=== PATIENT | female | born 1955 | race Caucasian/White ===

== ENCOUNTER 2017-01-22 08:44 | Emergency (ER) | payer MEDICAID ==
[~2017-01-22] VITALS: Ht 157.5 cm; Wt 48.0 kg
[~2017-01-22 08:44] MED LIST: CAPE500T15 PO; MORP15TA67 PO; PROC5TAB PO
[2017-01-22] MEDS ORDERED: ONDANSETRON HCL 4MG/2ML VIAL IV STA (09:52)
[2017-01-22] MEDS ORDERED: SODIUM CHLORIDE 0.9% 1,000 ML IV ONE (09:52)
[2017-01-22] MEDS ORDERED: MORPHINE SULFATE 4 MG/ML CPJ (NOT FOR IM USE) IV STA (09:52)
[2017-01-22 10:24] LABS: BASOPHILS % 0.4 % (0.0-2.0); EOSINOPHILS % 0.2 % (0.0-5.0); HEMATOCRIT. 43.6 % (36.0-48.0); HEMOGLOBIN. 15.3 g/dL (12.0-16.0); LYMPHOCYTES % 7.4 % (20.0-50.0); MEAN CORPUSCULAR HEMOGLOBIN 37.7 pg (28.0-32.0); MEAN CORPUSCULAR VOLUME 107.8 fL (81.0-99.0); MEAN PLATELET VOLUME 8.4 fl (7.4-10.4); MONOCYTES % 7.4 % (2.0-8.0); NEUTROPHILS % 84.6 % (40.0-76.0); PLATELET 335 x1000/uL (130-400); RED BLOOD CELL COUNT 4.05 mill/uL (4.2-5.4); RED CELL DISTRIBUTION WIDTH 12.4 % (11.6-14.6)
[2017-01-22 10:25] LABS: CHLORIDE 96 mEq/L (98-107)
[2017-01-22 10:26] LABS: PROTHROMBIN TIME 10.9 sec (9.4-11.6)
[2017-01-22 10:28] LABS: CLARITY URINE CLEAR (CLEAR); COLOR URINE DARK YELLOW (YELLOW); GLUCOSE URINE NEGATIVE (NEGATIVE); KETONES URINE NEGATIVE (NEGATIVE); LEUKOCYTE ESTERASE URINE NEGATIVE (NEGATIVE); NITRITE URINE NEGATIVE (NEGATIVE); OCCULT BLOOD URINE NEGATIVE (NEGATIVE); PROTEIN URINE NEGATIVE (NEGATIVE); SPECIFIC GRAVITY URINE 1.015 (1.005-1.030)
[2017-01-22 10:33] LABS: CARBON DIOXIDE 29 mEq/L (21-32); ETHANOL BLOOD < 10 mg/dL
[2017-01-22 11:08] LABS: *AMPHETAMINES SCREEN URINE NEGATIVE (NEGATIVE); *BARBITURATES SCREEN URINE NEGATIVE (NEGATIVE); *BENZODIAZEPINES SCREEN URINE NEGATIVE (NEGATIVE); *COCAINE SCREEN URINE NEGATIVE (NEGATIVE); CANNABINOID URINE SCREEN NEGATIVE (NEGATIVE); METHADONE URINE SCREEN NEGATIVE (NEGATIVE); OPIATES URINE SCREEN PRESUMTIVE POSITIVE (NEGATIVE); PHENCYCLIDINE URINE SCREEN NEGATIVE (NEGATIVE)
[2017-01-22 14:04] VITALS: BP 134/89
== END 2017-01-22 14:29 | disposition home or self-care (01) ==
LOC: ER 08:59 → CANBEDREQ 20:38
DX: R10.9 Unspecified abdominal pain (principal); R06.02 Shortness of breath; C18.9 Malignant neoplasm of colon, unspecified
CPT/HCPCS: 36415; 71010; 80053; 80305; 81003; 83605; 85025; 85610; 87040; 87086; 93005; 96361; 96374; 96375; 99285; G0482; J2270; J2405; J7030; Z7610

== ENCOUNTER 2017-02-26 18:14 | Inpatient (IN) | payer MEDICAID ==
[~2017-02-26] VITALS: Ht 157.5 cm; Wt 53.5 kg
[2017-02-26] MEDS ORDERED: IPRATROPIUM BROMIDE (0.02%) 0.5MG/2.5ML NEB HHN STA (18:40)
[2017-02-26] MEDS ORDERED: METHYLPREDNISOLONE SOD SUCC 125 MG/2 ML VIAL IV STA (18:40)
[2017-02-26] MEDS: ALBUTEROL (0.083%) 2.5MG/3ML NEB HHN SCH ×3 (19:15→20:25)
[2017-02-26 19:24] LABS: BASOPHILS % 0.9 % (0.0-2.0); EOSINOPHILS % 1.8 % (0.0-5.0); HEMATOCRIT. 42.3 % (36.0-48.0); HEMOGLOBIN. 14.7 g/dL (12.0-16.0); LYMPHOCYTES % 33.5 % (20.0-50.0); MEAN CORPUSCULAR HEMOGLOBIN 37.1 pg (28.0-32.0); MEAN CORPUSCULAR VOLUME 106.8 fL (81.0-99.0); MEAN PLATELET VOLUME 8.2 fl (7.4-10.4); MONOCYTES % 14.1 % (2.0-8.0); NEUTROPHILS % 49.7 % (40.0-76.0); PLATELET 237 x1000/uL (130-400); RED BLOOD CELL COUNT 3.96 mill/uL (4.2-5.4); RED CELL DISTRIBUTION WIDTH 14.1 % (11.6-14.6)
[2017-02-26 19:28] LABS: PROTHROMBIN TIME 10.9 sec (9.4-11.6)
[2017-02-26 19:30] LABS: CARBON DIOXIDE 24 mEq/L (21-32); CHLORIDE 104 mEq/L (98-107)
[2017-02-26 19:36] LABS: TROPONIN I < 0.02 ng/mL (0.00-0.04)
[2017-02-26] MEDS ORDERED: SODIUM CHLORIDE 0.9% 1,000 ML IV SCH (19:52)
[2017-02-26 22:30] VITALS: BP 118/64
[2017-02-26 22:45] VITALS: BP 118/64
[2017-02-26] MEDS ORDERED: POTASSIUM CHLORIDE 20MEQ TABLET SR PO NR (23:00)
[2017-02-26] MEDS ORDERED: MORPHINE SULFATE 15 MG PO SCH (23:00)
[2017-02-26] MEDS ORDERED: PROCHLORPERAZINE MALEATE 10 MG PO SCH (23:00)
[2017-02-26] MEDS ORDERED: ALBU2.5V13 IH (23:03)
[2017-02-26] MEDS ORDERED: HYDR-523 PO (23:03)
[2017-02-26] MEDS ORDERED: ASPI-1159 PO (23:03)
[2017-02-26] MEDS ORDERED: OMEP20CA10 PO (23:03)
[2017-02-26] MEDS: HYDROCODONE/ACETAMINOPHEN 5/325MG TABLET PO PRN (23:15)
[2017-02-26] MEDS ORDERED: MORPHINE SULFATE 10MG/5ML ORAL SOLN UDC PO PRN (23:45)
[2017-02-26] MEDS ORDERED: PROCHLORPERAZINE MALEATE 10MG TABLET PO PRN (23:45)
[2017-02-27] VITALS: BP 116/63
[2017-02-27 04:00] VITALS: BP_SYST 110; BP_SYST 128; BP_DIAS 59; BP_DIAS 67
[2017-02-27] MEDS: METHYLPREDNISOLONE SOD SUCC 40 MG/ML VIAL IV SCH ×3 (06:00→21:34)
[2017-02-27] MEDS: IPRATROPIUM/ALBUTEROL 0.5-3(2.5)MG/3ML NEB HHN SCH ×3 (07:53→20:10)
[2017-02-27 07:57] LABS: BASOPHILS % 0.3 % (0.0-2.0); HEMATOCRIT. 40.3 % (36.0-48.0); HEMOGLOBIN. 13.9 g/dL (12.0-16.0); LYMPHOCYTES % 7.7 % (20.0-50.0); MEAN CORPUSCULAR HEMOGLOBIN 37.1 pg (28.0-32.0); MEAN CORPUSCULAR VOLUME 107.2 fL (81.0-99.0); MEAN PLATELET VOLUME 8.2 fl (7.4-10.4); MONOCYTES % 4.1 % (2.0-8.0); NEUTROPHILS % 87.9 % (40.0-76.0); PLATELET 228 x1000/uL (130-400); RED BLOOD CELL COUNT 3.76 mill/uL (4.2-5.4); RED CELL DISTRIBUTION WIDTH 13.8 % (11.6-14.6)
[2017-02-27 08:00] VITALS: BP 148/82
[2017-02-27] MEDS: ASPIRIN 81MG EC TABLET PO SCH (08:07)
[2017-02-27 08:32] LABS: CHLORIDE 102 mEq/L (98-107)
[2017-02-27 08:41] LABS: CARBON DIOXIDE 23 mEq/L (21-32)
[2017-02-27] MEDS ORDERED: OMEPRAZOLE 20MG CAPSULE EXTENDED RELEASE PO SCH (09:00)
[2017-02-27 12:00] VITALS: BP 155/101
[2017-02-27] MEDS: THIAMINE HCL 100MG TABLET PO SCH (14:55)
[2017-02-27] MEDS: FOLIC ACID 1MG TABLET PO SCH (14:56)
[2017-02-27] MEDS: MULTIVITAMINS,THER W-MINERALS TABLET PO SCH (14:56)
[2017-02-27] MEDS ORDERED: ENOXAPARIN 40MG/0.4ML SYR SUBCUT SCH (15:00)
[2017-02-27 16:00] VITALS: BP 143/78
[2017-02-27] MEDS: NICOTINE 21MG PATCH TD SCH (16:00)
[2017-02-27] MEDS: BUDESONIDE 0.5MG/2ML NEB HHN SCH ×2 (16:17→20:10)
[2017-02-27 18:14] LABS: HEMATOCRIT. 42.5 % (36.0-48.0); HEMOGLOBIN. 14.4 g/dL (12.0-16.0); MEAN CORPUSCULAR HEMOGLOBIN 36.5 pg (28.0-32.0); MEAN CORPUSCULAR VOLUME 108.1 fL (81.0-99.0); MEAN PLATELET VOLUME 8.7 fl (7.4-10.4); PLATELET 249 x1000/uL (130-400); RED BLOOD CELL COUNT 3.93 mill/uL (4.2-5.4); RED CELL DISTRIBUTION WIDTH 14.1 % (11.6-14.6)
[2017-02-27] MEDS: HYDROCODONE/ACETAMINOPHEN 5/325MG TABLET PO PRN (18:31)
[2017-02-27 18:37] LABS: CARBON DIOXIDE 24 mEq/L (21-32); CHLORIDE 98 mEq/L (98-107)
[2017-02-27] MEDS ORDERED: ONDANSETRON HCL 4MG/2ML VIAL IV PRN (19:30)
[2017-02-27] MEDS ORDERED: DEXTROSE 50% WATER 50ML SYRINGE IV PRN (19:45)
[2017-02-27 20:00] VITALS: BP 148/72
[2017-02-27] MEDS: BLOOD SUGAR DIAGNOSTIC STRIP TEST SCH (20:23)
[2017-02-27 21:29] LABS: PLATELET ESTIMATE NORMAL
[2017-02-27] MEDS: INSULIN LISPRO 100 UNITS/ML SUBCUT SCH (21:38)
[2017-02-28] VITALS: BP 132/81
[2017-02-28] MEDS: METOCLOPRAMIDE HCL 10MG/2ML VIAL IV SCH ×3 (00:12→12:00)
[2017-02-28] MEDS: IPRATROPIUM/ALBUTEROL 0.5-3(2.5)MG/3ML NEB HHN SCH ×3 (01:50→12:24)
[2017-02-28 04:00] VITALS: BP 129/73
[2017-02-28] MEDS: METHYLPREDNISOLONE SOD SUCC 40 MG/ML VIAL IV SCH (06:08)
[2017-02-28] MEDS: BLOOD SUGAR DIAGNOSTIC STRIP TEST SCH ×2 (06:20→11:45)
[2017-02-28] MEDS: INSULIN LISPRO 100 UNITS/ML SUBCUT SCH ×2 (06:23→12:15)
[2017-02-28] MEDS ORDERED: OMEPRAZOLE 20MG CAPSULE EXTENDED RELEASE PO SCH (06:45)
[2017-02-28 08:00] VITALS: BP 126/84
[2017-02-28] MEDS: BUDESONIDE 0.5MG/2ML NEB HHN SCH (08:55)
[2017-02-28] MEDS: MULTIVITAMINS,THER W-MINERALS TABLET PO SCH (09:00)
[2017-02-28] MEDS: NICOTINE 21MG PATCH TD SCH ×2 (09:00→09:20)
[2017-02-28] MEDS: FOLIC ACID 1MG TABLET PO SCH (09:20)
[2017-02-28] MEDS: THIAMINE HCL 100MG TABLET PO SCH (09:20)
[2017-02-28] MEDS: ASPIRIN 81MG EC TABLET PO SCH (09:20)
[2017-02-28 12:00] VITALS: BP 142/85
[2017-02-28 13:15] VITALS: BP 142/85
[2017-03-10] MEDS ORDERED: ATOR10TA PO (13:15)
[2017-03-10] MEDS ORDERED: MECL-109 PO (13:15)
== END 2017-02-28 14:02 | disposition home or self-care (01) | DRG 140 ==
LOC: ER 20:27 → 5WST 20:28 → ENRESERV 20:42
PROVIDERS: ADMIT Family Medicine; ATTEND Family Medicine
DX: J44.1 Chronic obstructive pulmonary disease with (acute) exacerbation (principal); J96.00 Acute respiratory failure, unspecified whether with hypoxia or hypercapnia; C18.9 Malignant neoplasm of colon, unspecified; I10 Essential (primary) hypertension; E78.5 Hyperlipidemia, unspecified; F10.10 Alcohol abuse, uncomplicated; F17.210 Nicotine dependence, cigarettes, uncomplicated; J45.901 Unspecified asthma with (acute) exacerbation; Z90.49 Acquired absence of other specified parts of digestive tract; Z92.3 Personal history of irradiation; Z88.6 Allergy status to analgesic agent; Z71.6 Tobacco abuse counseling
CPT/HCPCS: 36415; 71010; 80048; 80053; 82962; 83880; 84484; 85025; 85610; 93005; 93970; 94640; 96361; 96374; 99285; J1650; J1815; J2405; J2765; J2920; J2930; J7030; J7611; J7620; J7626; Q0164

== ENCOUNTER 2017-03-09 11:18 | Inpatient (IN) | payer MEDICAID ==
[~2017-03-09] VITALS: Ht 157.5 cm; Wt 49.9 kg
[~2017-03-09 11:18] MED LIST changes: +ALBU2.5V13 IH; +ASPI-1159 PO; +HYDR-523 PO; +OMEP20CA10 PO
[2017-03-09] MEDS ORDERED: SODIUM CHLORIDE 0.9% 1,000 ML IV ONE (11:31)
[2017-03-09] MEDS ORDERED: ONDANSETRON HCL 4MG/2ML VIAL IV STA (11:31)
[2017-03-09] MEDS ORDERED: LORAZEPAM 2MG/ML CPJ IV ONE (11:45)
[2017-03-09 12:01] LABS: EOSINOPHILS % 0.2 % (0.0-5.0); HEMATOCRIT. 40.2 % (36.0-48.0); HEMOGLOBIN. 14.3 g/dL (12.0-16.0); LYMPHOCYTES % 7.7 % (20.0-50.0); MEAN CORPUSCULAR HEMOGLOBIN 36.8 pg (28.0-32.0); MEAN CORPUSCULAR VOLUME 103.7 fL (81.0-99.0); MEAN PLATELET VOLUME 8.1 fl (7.4-10.4); MONOCYTES % 6.7 % (2.0-8.0); NEUTROPHILS % 84.4 % (40.0-76.0); PLATELET 287 x1000/uL (130-400); RED BLOOD CELL COUNT 3.88 mill/uL (4.2-5.4); RED CELL DISTRIBUTION WIDTH 13.6 % (11.6-14.6)
[2017-03-09 12:06] LABS: CHLORIDE 98 mEq/L (98-107)
[2017-03-09 12:07] LABS: PROTHROMBIN TIME 10.8 sec (9.4-11.6)
[2017-03-09 12:15] LABS: CARBON DIOXIDE 29 mEq/L (21-32); TROPONIN I < 0.02 ng/mL (0.00-0.04)
[2017-03-09] MEDS ORDERED: CLONIDINE 0.1MG TABLET PO PRN (13:45)
[2017-03-09] MEDS ORDERED: IPRATROPIUM/ALBUTEROL 0.5-3(2.5)MG/3ML NEB INH PRN (13:45)
[2017-03-09] MEDS ORDERED: ACETAMINOPHEN 325MG TABLET PO PRN (13:45)
[2017-03-09] MEDS ORDERED: HYDROCODONE/ACETAMINOPHEN 5/325MG TABLET PO PRN (13:45)
[2017-03-09] MEDS ORDERED: DIPHENHYDRAMINE 50MG/ML VIAL IV PRN (13:45)
[2017-03-09] MEDS ORDERED: MECLIZINE 25MG TABLET PO PRN (13:45)
[2017-03-09 15:20] VITALS: BP 135/82
[2017-03-09] MEDS ORDERED: ENOXAPARIN 40MG/0.4ML SYR SUBCUT SCH (16:00)
[2017-03-09] MEDS: ONDANSETRON HCL 4MG/2ML VIAL IV PRN (16:33)
[2017-03-09] MEDS: SODIUM CHLORIDE 0.9% 1,000 ML IV SCH (17:06)
[2017-03-09 19:00] VITALS: BP 135/82
[2017-03-09 20:00] VITALS: BP 125/80
[2017-03-10] VITALS: BP 122/62
[2017-03-10 04:00] VITALS: BP 107/59
[2017-03-10] MEDS: ONDANSETRON HCL 4MG/2ML VIAL IV PRN ×2 (04:03→08:55)
[2017-03-10] MEDS: SODIUM CHLORIDE 0.9% 1,000 ML IV SCH (04:21)
[2017-03-10] MEDS ORDERED: MECLIZINE 25MG TABLET PO PRN (06:00)
[2017-03-10 06:54] LABS: CHLORIDE 98 mEq/L (98-107)
[2017-03-10 06:57] LABS: BASOPHILS % 0.7 % (0.0-2.0); HEMATOCRIT. 39.8 % (36.0-48.0); HEMOGLOBIN. 13.6 g/dL (12.0-16.0); LYMPHOCYTES % 11.4 % (20.0-50.0); MEAN CORPUSCULAR HEMOGLOBIN 36.3 pg (28.0-32.0); MEAN CORPUSCULAR VOLUME 106.4 fL (81.0-99.0); MEAN PLATELET VOLUME 8.5 fl (7.4-10.4); MONOCYTES % 9.3 % (2.0-8.0); NEUTROPHILS % 77.6 % (40.0-76.0); PLATELET 273 x1000/uL (130-400); RED BLOOD CELL COUNT 3.74 mill/uL (4.2-5.4); RED CELL DISTRIBUTION WIDTH 13.1 % (11.6-14.6)
[2017-03-10 07:01] LABS: CARBON DIOXIDE 30 mEq/L (21-32); HDL CHOLESTEROL 60 mg/dL (40-59); LDL CHOLESTEROL 124 mg/dL (5-100)
[2017-03-10 08:00] VITALS: BP 114/68
[2017-03-10] MEDS ORDERED: ASPIRIN 81MG EC TABLET PO SCH (09:00)
[2017-03-10 12:00] VITALS: BP 120/59
[2017-03-10] MEDS ORDERED: CAPECITABINE 500MG TABLET PO SCH (12:00)
[2017-03-10 13:12] VITALS: BP 120/59
[2017-03-10] MEDS ORDERED: ATOR10TA PO (13:15)
[2017-03-10] MEDS ORDERED: MECL-109 PO (13:15)
== END 2017-03-10 15:15 | disposition home or self-care (01) | DRG 111 ==
LOC: ER 11:32 → ENRESERV 12:05 → 7WST 13:23 → EDBEDREQ 13:24 → EDBEDREQTM 13:24
PROVIDERS: ADMIT Internal Medicine; ATTEND Internal Medicine
DX: R42 Dizziness and giddiness (principal); C19 Malignant neoplasm of rectosigmoid junction; E87.1 Hypo-osmolality and hyponatremia; D63.8 Anemia in other chronic diseases classified elsewhere; E87.6 Hypokalemia; F17.210 Nicotine dependence, cigarettes, uncomplicated; T45.1X5A Adverse effect of antineoplastic and immunosuppressive drugs, initial encounter; Z90.49 Acquired absence of other specified parts of digestive tract; Z88.5 Allergy status to narcotic agent
CPT/HCPCS: 36415; 70450; 71010; 80053; 80061; 82378; 83690; 83880; 84484; 85025; 85610; 87040; 87086; 93005; 96361; 96374; 96375; 99285; J1650; J2060; J2405; J7030

== ENCOUNTER 2017-05-27 16:20 | Emergency (ER) | payer MEDICAID ==
[~2017-05-27] VITALS: Ht 157.5 cm; Wt 52.0 kg
[~2017-05-27 16:20] MED LIST changes: -ALBU2.5V13 IH; +ATOR10TA PO; +MECL-109 PO; -MORP15TA67 PO; -OMEP20CA10 PO
[2017-05-27] MEDS ORDERED: SODIUM CHLORIDE 0.9% 1,000 ML IV ONE (23:11)
[2017-05-27] MEDS ORDERED: KETOROLAC 30MG/ML VIAL IV ONE (23:15)
[2017-05-27 23:50] LABS: BASOPHILS % 0.7 % (0.0-2.0); EOSINOPHILS % 1.9 % (0.0-5.0); HEMATOCRIT. 41.8 % (36.0-48.0); HEMOGLOBIN. 14.7 g/dL (12.0-16.0); LYMPHOCYTES % 14.6 % (20.0-50.0); MEAN CORPUSCULAR HEMOGLOBIN 36.6 pg (28.0-32.0); MEAN CORPUSCULAR VOLUME 104.5 fL (81.0-99.0); MEAN PLATELET VOLUME 8.2 fl (7.4-10.4); MONOCYTES % 12.5 % (2.0-8.0); NEUTROPHILS % 70.3 % (40.0-76.0); PLATELET 282 x1000/uL (130-400); RED CELL DISTRIBUTION WIDTH 13.2 % (11.6-14.6)
[2017-05-28 00:08] LABS: CARBON DIOXIDE 28 mEq/L (21-32); CHLORIDE 102 mEq/L (98-107)
[2017-05-28] MEDS ORDERED: IOHEXOL-300 100 ML BOTTLE ONE (03:52)
[2017-05-28] MEDS ORDERED: KETOROLAC 30MG/ML VIAL IV ONE (04:45)
[2017-05-28 06:11] VITALS: BP 137/79
== END 2017-05-28 06:15 | disposition home or self-care (01) ==
LOC: ER 16:28
DX: K59.00 Constipation, unspecified (principal); C22.9 Malignant neoplasm of liver, not specified as primary or secondary; C18.9 Malignant neoplasm of colon, unspecified; Z88.5 Allergy status to narcotic agent
CPT/HCPCS: 36415; 74177; 80053; 83690; 85025; 96361; 96374; 96375; 99285; J1885; J7030; Q9967; Z7610

== ENCOUNTER 2017-06-18 16:29 | Emergency (ER) | payer MEDICAID ==
[~2017-06-18] VITALS: Ht 165.1 cm; Wt 59.0 kg
[2017-06-18] MEDS ORDERED: ONDANSETRON HCL 4MG/2ML VIAL IV ONE ×2 (19:00→21:15)
[2017-06-18] MEDS ORDERED: SODIUM CHLORIDE 0.9% 1,000 ML IV ONE (21:15)
[2017-06-18] MEDS ORDERED: MORPHINE SULFATE 0.5MG/ML SYR 1ML(NEO) IV ONE (21:30)
[2017-06-18 21:49] LABS: BASOPHILS % 0.9 % (0.0-2.0); EOSINOPHILS % 0.1 % (0.0-5.0); HEMOGLOBIN. 15.5 g/dL (12.0-16.0); LYMPHOCYTES % 9.7 % (20.0-50.0); MEAN CORPUSCULAR HEMOGLOBIN 34.9 pg (28.0-32.0); MEAN CORPUSCULAR VOLUME 101.5 fL (81.0-99.0); MEAN PLATELET VOLUME 8.8 fl (7.4-10.4); MONOCYTES % 7.5 % (2.0-8.0); NEUTROPHILS % 81.8 % (40.0-76.0); PLATELET 287 x1000/uL (130-400); RED BLOOD CELL COUNT 4.43 mill/uL (4.2-5.4); RED CELL DISTRIBUTION WIDTH 12.5 % (11.6-14.6)
[2017-06-18] MEDS ORDERED: MORPHINE SULFATE 4 MG/ML CPJ (NOT FOR IM USE) IV NR (22:00)
[2017-06-18 22:05] LABS: CHLORIDE 102 mEq/L (98-107)
[2017-06-18 23:30] VITALS: BP 135/79
[2017-08-26] MEDS ORDERED: DOCU-138 PO (08:09)
[2017-08-26] MEDS ORDERED: HYDR-4001 PO (08:09)
== END 2017-06-18 23:40 | disposition home or self-care (01) ==
LOC: ER 16:29
DX: R11.10 Vomiting, unspecified (principal); Z92.21 Personal history of antineoplastic chemotherapy; Z79.82 Long term (current) use of aspirin; Z85.07 Personal history of malignant neoplasm of pancreas; Z88.5 Allergy status to narcotic agent
CPT/HCPCS: 36415; 80053; 85025; 96361; 96374; 96375; 96376; 99285; J2270; J2405; J7030

== ENCOUNTER 2017-08-23 09:50 | Emergency (ER) | payer MEDICAID ==
[~2017-08-23] VITALS: Ht 165.1 cm; Wt 55.0 kg
[2017-08-23] MEDS ORDERED: SODIUM CHLORIDE 0.9% 1,000 ML IV ONE (10:22)
[2017-08-23] MEDS ORDERED: ONDANSETRON HCL 4MG/2ML VIAL IV STA ×2 (10:22→12:27)
[2017-08-23] MEDS ORDERED: MORPHINE SULFATE 4 MG/ML CPJ (NOT FOR IM USE) IV STA ×2 (10:22→12:27)
[2017-08-23 10:52] LABS: HEMATOCRIT. 44.7 % (36.0-48.0); MEAN CORPUSCULAR HEMOGLOBIN 36.3 pg (28.0-32.0); MEAN CORPUSCULAR VOLUME 101.6 fL (81.0-99.0); MEAN PLATELET VOLUME 8.3 fl (7.4-10.4); PLATELET 336 x1000/uL (130-400); RED CELL DISTRIBUTION WIDTH 15.3 % (11.6-14.6)
[2017-08-23 10:56] LABS: INR 1.1; PROTHROMBIN TIME 11.7 sec (9.4-11.6)
[2017-08-23 11:00] LABS: CHLORIDE 97 mEq/L (98-107)
[2017-08-23 11:18] LABS: CLARITY URINE CLEAR (CLEAR); COLOR URINE YELLOW (YELLOW); KETONES URINE 3+ (NEGATIVE); LEUKOCYTE ESTERASE URINE NEGATIVE (NEGATIVE); NITRITE URINE NEGATIVE (NEGATIVE); OCCULT BLOOD URINE NEGATIVE (NEGATIVE); PH URINE 6.5 (4.5-8.0); PROTEIN URINE NEGATIVE (NEGATIVE); SPECIFIC GRAVITY URINE 1.019 (1.005-1.030)
[2017-08-23 12:35] VITALS: BP 153/110
[2017-08-23] MEDS ORDERED: METOCLOPRAMIDE HCL 10MG/2ML VIAL IV STA (13:41)
[2017-08-23 13:53] LABS: PLATELET ESTIMATE NORMAL
[2017-08-23] MEDS ORDERED: POTASSIUM CHLORIDE 20MEQ TABLET SR PO ONE (14:00)
[2017-08-26] MEDS ORDERED: HYDR-4001 PO (08:09)
[2017-08-26] MEDS ORDERED: DOCU-138 PO (08:09)
== END 2017-08-23 15:15 | disposition home or self-care (01) ==
LOC: ER 10:46
DX: R11.2 Nausea with vomiting, unspecified (principal); R10.9 Unspecified abdominal pain; C76.8 Malignant neoplasm of other specified ill-defined sites; C78.7 Secondary malignant neoplasm of liver and intrahepatic bile duct; C78.89 Secondary malignant neoplasm of other digestive organs; Z79.82 Long term (current) use of aspirin
CPT/HCPCS: 36415; 74177; 80053; 81003; 83690; 85025; 85610; 96361; 96374; 96375; 96376; 99285; J2270; J2405; J2765; J7030; Z7610

== ENCOUNTER 2017-09-13 15:47 | Emergency (ER) | payer MEDICAID ==
[~2017-09-13] VITALS: Ht 167.6 cm; Wt 60.0 kg
[~2017-09-13 15:47] MED LIST changes: -ASPI-1159 PO; -ATOR10TA PO; +DOCU-138 PO; +HYDR-4001 PO; -HYDR-523 PO; -MECL-109 PO; -PROC5TAB PO
[2017-09-13] MEDS ORDERED: SODIUM CHLORIDE 0.9% 1,000 ML IV ONE ×2 (18:11→21:58)
[2017-09-13] MEDS ORDERED: ONDANSETRON HCL 4MG/2ML VIAL IV STA (18:11)
[2017-09-13] MEDS ORDERED: MORPHINE SULFATE 4 MG/ML CPJ (NOT FOR IM USE) IV STA (18:11)
[2017-09-13 19:09] LABS: BASOPHILS % 0.4 % (0.0-2.0); EOSINOPHILS % 0.2 % (0.0-5.0); HEMATOCRIT. 42.2 % (36.0-48.0); HEMOGLOBIN. 14.7 g/dL (12.0-16.0); LYMPHOCYTES % 7.9 % (20.0-50.0); MEAN CORPUSCULAR HEMOGLOBIN 35.3 pg (28.0-32.0); MEAN CORPUSCULAR VOLUME 101.1 fL (81.0-99.0); MEAN PLATELET VOLUME 8.1 fl (7.4-10.4); MONOCYTES % 10.5 % (2.0-8.0); PLATELET 419 x1000/uL (130-400); RED BLOOD CELL COUNT 4.17 mill/uL (4.2-5.4); RED CELL DISTRIBUTION WIDTH 14.3 % (11.6-14.6)
[2017-09-13 19:14] LABS: CHLORIDE 94 mEq/L (98-107); INR 1.1; PARTIAL THROMBOPLASTIN TIME 29.4 sec (23.4-31.0); PROTHROMBIN TIME 11.6 sec (9.4-11.6)
[2017-09-13] MEDS ORDERED: POTASSIUM CHLORIDE 20MEQ TABLET SR PO ONE (21:15)
[2017-09-13] MEDS ORDERED: METRONIDAZOLE 500MG TABLET PO ONE (22:00)
[2017-09-13] MEDS ORDERED: LOPERAMIDE 2 MG/10 ML UDC PO ONE (22:00)
[2017-09-13] MEDS ORDERED: MORPHINE SULFATE 4 MG/ML CPJ (NOT FOR IM USE) IV ONE (22:00)
[2017-09-13] MEDS ORDERED: LEVOFLOXACIN 500MG TABLET PO ONE (22:00)
[2017-09-13 23:38] LABS: CLARITY URINE CLEAR (CLEAR); COLOR URINE YELLOW (YELLOW); KETONES URINE NEGATIVE (NEGATIVE); LEUKOCYTE ESTERASE URINE NEGATIVE (NEGATIVE); NITRITE URINE NEGATIVE (NEGATIVE); OCCULT BLOOD URINE NEGATIVE (NEGATIVE); PH URINE 6.5 (4.5-8.0); PROTEIN URINE NEGATIVE (NEGATIVE)
[2017-09-13 23:52] LABS: *AMPHETAMINES SCREEN URINE NEGATIVE (NEGATIVE)
[2017-09-13 23:53] LABS: *BARBITURATES SCREEN URINE NEGATIVE (NEGATIVE); *BENZODIAZEPINES SCREEN URINE NEGATIVE (NEGATIVE); *COCAINE SCREEN URINE NEGATIVE (NEGATIVE); METHADONE URINE SCREEN NEGATIVE (NEGATIVE); OPIATES URINE SCREEN PRESUMTIVE POSITIVE (NEGATIVE)
[2017-09-13 23:54] LABS: CANNABINOID URINE SCREEN NEGATIVE (NEGATIVE); PHENCYCLIDINE URINE SCREEN NEGATIVE (NEGATIVE)
[2017-09-14 00:26] VITALS: BP 110/78
== END 2017-09-14 00:28 | disposition home or self-care (01) ==
LOC: ER 15:47
DX: R10.13 Epigastric pain (principal); G89.29 Other chronic pain; C18.9 Malignant neoplasm of colon, unspecified; K62.5 Hemorrhage of anus and rectum; R19.7 Diarrhea, unspecified; R11.10 Vomiting, unspecified; K76.9 Liver disease, unspecified; Z88.5 Allergy status to narcotic agent
CPT/HCPCS: 36415; 71045; 74176; 80053; 80305; 81003; 83690; 85025; 85610; 85730; 86850; 86900; 86901; 87086; 93005; 96361; 96374; 96375; 96376; 99285; J2270; J2405; J7030; Z7610

== ENCOUNTER 2017-10-14 15:44 | Emergency (ER) | payer MEDICAID ==
[~2017-10-14] VITALS: Ht 160 cm; Wt 45.0 kg
[2017-10-14] MEDS ORDERED: TETANUS, DIPHTHERIA, PERTUSSIS VAC/PF 0.5ML (>7YR OLD) IM ONE (17:00)
[2017-10-14] MEDS ORDERED: KETOROLAC 60MG/2ML VIAL IM ONE (17:00)
[2017-10-14 20:27] VITALS: BP 112/62
== END 2017-10-14 20:52 | disposition home or self-care (01) ==
LOC: ER 15:59
DX: S02.2XXA Fracture of nasal bones, initial encounter for closed fracture (principal); S50.811A Abrasion of right forearm, initial encounter; M54.2 Cervicalgia; W10.9XXA Fall (on) (from) unspecified stairs and steps, initial encounter; Y93.01 Activity, walking, marching and hiking; Y99.8 Other external cause status; Y92.89 Other specified places as the place of occurrence of the external cause; Z85.07 Personal history of malignant neoplasm of pancreas; Z88.5 Allergy status to narcotic agent; Z90.49 Acquired absence of other specified parts of digestive tract
CPT/HCPCS: 70450; 70486; 72125; 90471; 90715; 96372; 99284; J1885; Z7610